=== PATIENT | male | born 1950 | race Two or more races ===

== ENCOUNTER 2017-06-11 11:55 | Inpatient (IN) | payer MEDICARE, OTHER ==
[~2017-06-11] VITALS: Ht 175.3 cm; Wt 77.1 kg
[2017-06-11] MEDS ORDERED: Morphine Sulfate 4mg/ml Inj IVP ONE (12:15)
[2017-06-11 13:38] LABS: BASOPHILS % (AUTO) 0.6 % (0.0-2.0); EOSINOPHILS % (AUTO) 0.1 % (0.0-3.0); LYMPHOCYTES % (AUTO) 22.7 % (20.0-45.0); MEAN CORPUSCULAR HEMOGLOBIN 30.1 PG (27.0-31.0); MEAN CORPUSCULAR HGB CONC 32.3 G/DL (32.0-36.0); MEAN CORPUSCULAR VOLUME 93 FL (80-99); MEAN PLATELET VOLUME 7.1 FL (6.5-10.1); MONOCYTES % (AUTO) 6.6 % (1.0-10.0); PLATELET COUNT 305 K/UL (150-450); RED BLOOD COUNT 4.15 M/UL (4.70-6.10); RED CELL DISTRIBUTION WIDTH 13.1 % (11.6-14.8); WHITE BLOOD COUNT 16.3 K/UL (4.8-10.8)
[2017-06-11 13:39] LABS: APPEARANCE,URINE SLIGHTLY CLOUDY; KETONES,URINE NEGATIVE (NEGATIVE); LEUKOCYTE ESTERASE ,URINE 3+ (NEGATIVE); NITRITE,URINE POSITIVE (NEGATIVE); PH,URINE 9 (4.5-8.0); PROTEIN,URINE 2+ (NEGATIVE); UROBILINOGEN,URINE NORMAL MG/DL (0.0-1.0)
[2017-06-11 14:03] LABS: BACTERIA,URINE MANY /HPF; SQUAMOUS EPITHELIAL CELL,UR OCCASIONAL /LPF (NONE/OCC); WBC,URINE 15-20 /HPF (0 - 0)
[2017-06-11] MEDS ORDERED: cefTRIAXone 1 GM in NS 55 ML IVPB ONE (14:15)
--- NOTE | 2017-06-11 14:27 | Emergency Room Report ---
History of Present Illness General Chief Complaint: Nausea, Vomiting, and Diarrhea Source: Patient, EMS Present Illness HPI 67-year-old male presents ED for evaluation. Per EMS patient had abdominal pain with vomiting starting today at the long term. Patient points lower abdomen. States pain is a 10 out of 10, sharp, nonradiating. Denies fevers or chills. Denies chest pain or shortness of breath. No other aggravating or relieving factors. Denies any other associated symptom Allergies: Coded Allergies: ASPIRIN (Verified Allergy, Unknown, 06/11/17) NAPROXEN (Verified Allergy, Unknown, 06/11/17) Patient History Past Medical History: DM, HTN, CVA/TIA Past Surgical History: none Pertinent Family History: none Social History: Denies: alcohol use, drug use, smoking Immunizations: UTD Reviewed Nursing Documentation: PMH: Agreed, PSxH: Agreed Nursing Documentation-PMH Past Medical History: No History, Except For Hx Hypertension: Yes Hx Diabetes: Yes Hx Cerebrovascular Accident: Yes Review of Systems All Other Systems: negative except mentioned in HPI Physical Exam Vital Signs Date Time Temp Pulse Resp B/P Pulse Ox O2 Delivery O2 Flow Rate FiO2 06/11/17 11:57 98.4 74 18 152/84 98 Room Air Sp02 EP Interpretation: reviewed, normal General Appearance: no apparent distress, alert, GCS 15, non-toxic Head: normocephalic, atraumatic Eyes: bilateral eye PERRL, bilateral eye normal inspection ENT: hearing grossly normal, normal pharynx, no angioedema, normal voice Neck: full range of motion, supple/symm/no masses Respiratory: chest non-tender, lungs clear, normal breath sounds, speaking full sentences Cardiovascular #1: regular rate, rhythm, no edema Cardiovascular #2: 2+ carotid (R), 2+ carotid (L), 2+ radial (R), 2+ radial (L) , 2+ dorsalis pedis (R), 2+ dorsalis pedis (L) Gastrointestinal: normal bowel sounds, soft, non-distended, no guarding, no rebound, tenderness - lower abdomen Rectal: deferred Genitourinary: normal inspection, no CVA tenderness Musculoskeletal: back normal, gait/station normal, normal range of motion, non- tender Neurologic: alert, oriented x3, responsive, motor strength/tone normal, sensory intact, speech normal Psychiatric: judgement/insight normal, memory normal, mood/affect normal, no suicidal/homicidal ideation Reflexes: 3+ bicep (R), 3+ bicep (L), 3+ tricep (R), 3+ tricep (L), 3+ knee (R) , 3+ knee (L) Skin: normal color, no rash, warm/dry, well hydrated Lymphatic: no adenopathy Medical Decision Making Diagnostic Impression: Primary Impression: UTI (urinary tract infection) Qualified Codes: N39.0 - Urinary tract infection, site not specified; R31.9 - Hematuria, unspecified Additional Impression: Vomiting Qualified Codes: R11.2 - Nausea with vomiting, unspecified ER Course Hospital Course 67-year-old male presents to ED with lower abdominal pain and vomiting. Differential diagnoses include: BPH, cystitis, pyelonephritis, kidney stone Clinical course Patient placed on stretcher. health information manager. After initial history and physical I ordered labs, IV fluids, UA, pain medication and CT scan Labs - no leukocytosis, Hb/Hct stable. chemistry hemolyzed. UA + bacteria CT deferred - CT is down. patient appears comfortable and I believe the pain is likely due to the UTI. I believe CT can be deferred for now abx given. Case discussed with Dr. Harris (covering for Dr Prasad) and he agreed to accept the patient to his service for further care and support I feel this is a highly complex case requiring extensive working including EKG/ Rhythm strip, Xray/CT/US, Blood/urine lab work, repeat exams while in ED, and administration of strong opiates/narcotics for pain control, admission to hospital or close patient follow up. Diagnosis - UTI, vomiting Patient admitted to floor in serious condition Labs Test 06/11/17 13:20 White Blood Count 16.3 K/UL (4.8-10.8) Red Blood Count 4.15 M/UL (4.70-6.10) Hemoglobin 12.5 G/DL (14.2-18.0) Hematocrit 38.7 % (42.0-52.0) Mean Corpuscular Volume 93 FL (80-99) Mean Corpuscular Hemoglobin 30.1 PG (27.0-31.0) Mean Corpuscular Hemoglobin Concent 32.3 G/DL (32.0-36.0) Red Cell Distribution Width 13.1 % (11.6-14.8) Platelet Count 305 K/UL (150-450) Mean Platelet Volume 7.1 FL (6.5-10.1) Neutrophils (%) (Auto) 70.0 % (45.0-75.0) Lymphocytes (%) (Auto) 22.7 % (20.0-45.0) Monocytes (%) (Auto) 6.6 % (1.0-10.0) Eosinophils (%) (Auto) 0.1 % (0.0-3.0) Basophils (%) (Auto) 0.6 % (0.0-2.0) Urine Color Pale yellow Urine Appearance Slightly cloudy Urine pH 9 (4.5-8.0) Urine Specific [place] 1.010 (1.005-1.035) Urine Protein 2+ (NEGATIVE) Urine Glucose (UA) Negative (NEGATIVE) Urine Ketones Negative (NEGATIVE) Urine Occult Blood 2+ (NEGATIVE) Urine Nitrite Positive (NEGATIVE) Urine Bilirubin Negative (NEGATIVE) Urine Urobilinogen Normal MG/DL (0.0-1.0) Urine Leukocyte Esterase 3+ (NEGATIVE) Urine RBC 5-10 /HPF (0 - 0) Urine WBC 15-20 /HPF (0 - 0) Urine Squamous Epithelial Cells Occasional /LPF Urine Bacteria Many /HPF (NONE) Lactic Acid Level 1.30 mmol/L (0.66-2.22) EKG Diagnostic Results Rate: normal Rhythm: NSR ST Segments: no acute changes ASA given to the pt in ED: No Rhythm Strip Diag. Results EP Interpretation: yes Rhythm: NSR, no PVC's, no ectopy CT/MRI/US Diagnostic Results CT/MRI/US Diagnostic Results : Imaging Test Ordered: CT DOWN Last Vital Signs Date Time Temp Pulse Resp B/P Pulse Ox O2 Delivery O2 Flow Rate FiO2 06/11/17 11:57 98.4 74 18 152/84 98 Room Air Status: improved Disposition: ADMITTED INPATIENT Condition: Serious Referrals: PANKAJ GEIGER (PCP) TAYLOR HERRERA M.D. Jun 11, 2017 14:27
[2017-06-11] MEDS ORDERED: Acetaminophen 650 MG SUPP RECTAL PRN ×3 (15:00→19:15)
[2017-06-11] MEDS ORDERED: PROSCAR5 MG ORAL (15:09)
[2017-06-11] MEDS ORDERED: HEPARIN SO5000 UNIT2 SUBQ (15:09)
[2017-06-11] MEDS ORDERED: PEPCID20 MG ORAL (15:09)
[2017-06-11] MEDS ORDERED: JANUVIA25 MG ORAL (15:09)
[2017-06-11] MEDS ORDERED: ATORVASTATIN CA10 MG ORAL (15:09)
[2017-06-11] MEDS ORDERED: FLEET ENEMA133 ML RECTAL (15:09)
[2017-06-11] MEDS ORDERED: COLACE100 MG ORAL (15:09)
[2017-06-11] MEDS ORDERED: BENAZEPRIL HCL10 MG ORAL (15:09)
[2017-06-11] MEDS ORDERED: CARVEDILOL3.125 MG ORAL (15:09)
[2017-06-11] MEDS ORDERED: BISACODYL5 MG ORAL (15:09)
[2017-06-11] MEDS ORDERED: METFORMIN HCL500 M1 ORAL (15:09)
[2017-06-11] MEDS ORDERED: MILK OF MA400 MG/51 ORAL (15:09)
[2017-06-11] MEDS ORDERED: ACETAMINOPHEN325 M1 ORAL (15:14)
[2017-06-11] MEDS ORDERED: PLAVIX75 MG ORAL (15:14)
[2017-06-11] MEDS ORDERED: ZOFRAN4 M3 ORAL (15:14)
[2017-06-11] MEDS ORDERED: VITAMIN C500 M1 ORAL (15:14)
[2017-06-11] MEDS ORDERED: senna PO (15:14)
[2017-06-11] MEDS ORDERED: CARAFATE1 G1 ORAL (15:14)
[2017-06-11 16:21] VITALS: BP 129/65
[2017-06-11 16:48] LABS: TROPONIN I < 0.30 ng/mL (<=0.30)
[2017-06-11 16:51] LABS: ALANINE AMINOTRANSFERASE 9 U/L (3-41); ALBUMIN/GLOBULIN RATIO 0.9 (1.0-2.7); ANION GAP 12 (5-15); ASPARTATE AMINO TRANSFERASE 8 U/L (5-40); CARBON DIOXIDE 25 mEQ/L (20-30); CHLORIDE 102 mEQ/L (98-107); CREATININE 1.1 mg/dL (0.7-1.2); GLOMERULAR FILTRATION RATE > 60 mL/min (>60); HEMOLYSIS 90; LIPASE 64 U/L (< 60); POTASSIUM 4.6 mEQ/L (3.4-4.9); SODIUM 139 mEQ/L (135-145); TOTAL PROTEIN 6.8 g/dL (6.6-8.7)
[2017-06-11] MEDS ORDERED: D5 1/2NS 1,000 ML IV SCH (18:00)
[2017-06-11 18:30] VITALS: BP 143/87
[2017-06-11] MEDS ORDERED: Milk of Magnesia 30ml Ud ORAL PRN (19:15)
[2017-06-11] MEDS ORDERED: Fleet's Enema 133ml RECTAL PRN (19:15)
[2017-06-11 20:00] VITALS: BP 131/69
[2017-06-11] MEDS ORDERED: Fleet's Enema 133ml RECTAL ONE (21:00)
[2017-06-11] MEDS ORDERED: Heparin 5000 units/ml inj SUBQ SCH ×2 (21:00)
[2017-06-11] MEDS: 1/2NS w/KCl 20mEq 1000ml 1,000 ML IV SCH (21:25)
[2017-06-11] MEDS: Lactulose 20gm/30ml UDC ORAL SCH ×2 (21:25→22:57)
[2017-06-11] MEDS: Pantoprazole Inj IVP SCH (21:27)
[2017-06-11] MEDS: Heparin 5000 units/ml inj SUBQ SCH (21:28)
[2017-06-11] MEDS: NovoLOG Insulin Flexpen SUBQ SCH (21:29)
[2017-06-11] MEDS: Morphine Sulfate 4mg/ml Inj IVP PRN (22:58)
--- NOTE | 2017-06-11 23:45 | History and Physical Report ---
DATE OF ADMISSION: 06/11/2017 CHIEF COMPLAINT AND REASON FOR HOSPITALIZATION: The patient admitted with nausea and projectile vomiting. HISTORY OF PRESENT ILLNESS: The patient is a poor historian. He is a resident of an [facility]. He has had apparently projectile vomiting several times today. The patient has had gastroesophageal reflux. 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 He has a suprapubic catheter apparently for obstructive uropathy. The patient was hospitalized in February 2017 and old records are reviewed. At that time, he apparently had an episode of sepsis, acute renal failure, urosepsis shock from the above and recovered. There is a history of diabetes, diabetic neuropathy, organic brain syndrome, diastolic heart failure of chronic kidney disease stage 3, and benign prostatic hypertrophy. MEDICATIONS: Prior to admission, medications are reviewed on the computer. HABITS: He is a former smoker and moderate alcohol drinker, but quit socially and lives in an [facility]. SYSTEM REVIEW: HEAD, EYES, EARS, NOSE, AND THROAT: He states vision and hearing is good. ENDOCRINE: Diabetes as above. No known thyroid disease. PULMONARY: No asthma or TB. CARDIAC: Record showed diastolic heart failure. No complaints of chest pain or palpitations. GASTROINTESTINAL: See above. GENITOURINARY: He has a suprapubic catheter. NEUROLOGIC: He is nonambulatory and still has residual weakness both legs. PHYSICAL EXAMINATION: GENERAL: The patient is alert man, lying in bed, in no acute distress. VITAL SIGNS: Temperature 94, pulse 59, respirations 18, and blood pressure 129/65. HEAD EYES, EARS, NOSE, AND THROAT: Sclerae are nonicteric. Ocular motions are intact in all directions. Oral mucosa moist. NECK: No adenopathy or thyroid enlargement. LUNGS: Clear. HEART: Rhythm is regular. I hear no murmur. ABDOMEN: Mildly distended and tympanitic. There is a suprapubic catheter. No focal tenderness. RECTAL: There is reduced sphincter stone. I do not feel an enlarged prostate. There is light brown stool on the glove, only a scant amount. No reachable fecal impaction. EXTREMITIES: No edema, cyanosis or clubbing. NEUROLOGIC: He is alert and responsive. Cranial nerves are intact. He moves all extremities, but has weakness in both legs about 3+/5. LABORATORY DATA: Reviewed on the computer. IMPRESSION: 1. Abdominal pain, nausea, and vomiting. This could be due to gastritis, partial fecal impaction, early pancreatitis, possible other etiologies are numerous. 2. Diabetes. 3. History of Guillain-Browning syndrome. 4. History of suprapubic catheter. 5. Pyuria possibly urinary tract infection. 6. Cognitive impairment. PLAN: The patient's culture he received ceftriaxone already. He will be given a clear liquid diet and laxative regimen. We will get his abdominal imaging tomorrow and make further assessment and treatment. Pending a course of treatment. Also given PPI for gastritis. Viktor Harris M.D. DR: YOHANNES JOB#: [id number] CC:
[2017-06-12] VITALS: BP 131/68
[2017-06-12] MEDS: Lactulose 20gm/30ml UDC ORAL SCH (00:48)
--- NOTE | 2017-06-12 03:21 | Wound Care Consultation ---
Wound Assessment Wound Assessment #1: Wound Number: #1 Wound Present on Admission: Yes New Wound: No Status Change of Wound: No Wound Location Body Site Modif: mid Wound Location Body Site: sacral Wound Type: scar Shilo Test: Does not Shilo Wound Thickness: Full Thickness - scar tissue Wound Length: 3.0 Wound Width: 4.5 Wound Depth: utd Percent of Wound [place]/Red: 100 Wound Drainage Amount: None Wound Drainage Odor: None/Absent Tissue Surrounding Wound: Intact Wound General Appearance: Asymptomatic, Reddened Wound Assessment #2: Wound Number: #2 Wound Present on Admission: Yes New Wound: No Status Change of Wound: No Wound Location Body Site Modif: right Wound Location Body Site: ischial tuberosity Wound Type: scar Shilo Test: Does not Shilo Wound Thickness: Full Thickness - full thickness scar tissue Wound Length: 2.5 Wound Width: 3.5 Percent of Wound [place]/Red: 100 Wound Drainage Amount: None Wound Drainage Odor: None/Absent Tissue Surrounding Wound: Intact Wound General Appearance: Asymptomatic, Reddened Wound Assessment #3: Wound Number: #3 Wound Present on Admission: Yes New Wound: No Status Change of Wound: No Wound Location Body Site Modif: right Wound Location Body Site: ischial tuberosity Wound Type: scar Shilo Test: Does not Shilo Wound Thickness: Full Thickness - scar tissue Wound Length: 2.5 Wound Width: 3.5 Percent of Wound [place]/Red: 100 Wound Drainage Amount: None Wound Drainage Odor: None/Absent Tissue Surrounding Wound: Intact Wound General Appearance: Asymptomatic, Reddened Wound Comment #1 Sacral full thickness scar tissue #2 Left ischial tuberosity full thickness scar tissue #3 Right ischial tuberosity full thickness scar tissue Recommendation -Keep clean and dry -Turn and reposition -Optimize nutrition -Low air loss SPR mattress -Offload both heels -Heel protector on both heels -Assess and f/u accordingly for any changes TIN WHITE RN Jun 12, 2017 03:21
[2017-06-12 04:00] VITALS: BP 124/84
[2017-06-12] MEDS: NovoLOG Insulin Flexpen SUBQ SCH ×4 (06:35→21:00)
[2017-06-12 08:14] VITALS: BP 123/70
[2017-06-12] MEDS: sitaGLIPtin 25mg tab ORAL SCH (09:00)
[2017-06-12 09:10] LABS: BASOPHILS % (AUTO) 1.1 % (0.0-2.0); EOSINOPHILS % (AUTO) 2.3 % (0.0-3.0); LYMPHOCYTES % (AUTO) 42.9 % (20.0-45.0); MEAN CORPUSCULAR HEMOGLOBIN 30.3 PG (27.0-31.0); MEAN CORPUSCULAR HGB CONC 31.8 G/DL (32.0-36.0); MEAN CORPUSCULAR VOLUME 95 FL (80-99); MEAN PLATELET VOLUME 6.8 FL (6.5-10.1); MONOCYTES % (AUTO) 6.8 % (1.0-10.0); NEUTROPHILS % (AUTO) 46.9 % (45.0-75.0); PLATELET COUNT 291 K/UL (150-450); RED BLOOD COUNT 3.83 M/UL (4.70-6.10); RED CELL DISTRIBUTION WIDTH 13.3 % (11.6-14.8); WHITE BLOOD COUNT 12.6 K/UL (4.8-10.8)
[2017-06-12] MEDS: Sucralfate 1gm tab ORAL SCH ×2 (09:28→17:47)
[2017-06-12] MEDS: Benazepril 10mg tab ORAL SCH (09:28)
[2017-06-12] MEDS: Ascorbic Acid 500mg tab ORAL SCH (09:28)
[2017-06-12 09:29] LABS: ALANINE AMINOTRANSFERASE 9 U/L (3-41); ANION GAP 12 (5-15); ASPARTATE AMINO TRANSFERASE 6 U/L (5-40); CALCIUM 8.5 mg/dL (8.6-10.2); CARBON DIOXIDE 28 mEQ/L (20-30); CHLORIDE 103 mEQ/L (98-107); CREATININE 1.2 mg/dL (0.7-1.2); GLOMERULAR FILTRATION RATE > 60 mL/min (>60); HEMOLYSIS 4; POTASSIUM 4.5 mEQ/L (3.4-4.9); SODIUM 143 mEQ/L (135-145); TOTAL PROTEIN 7.4 g/dL (6.6-8.7)
[2017-06-12] MEDS: Docusate 100mg cap ORAL SCH (09:29)
[2017-06-12] MEDS: Pantoprazole Inj IVP SCH ×2 (09:29→21:06)
[2017-06-12] MEDS: Bisacodyl EC 5mg tab ORAL SCH (09:29)
--- NOTE | 2017-06-12 09:31 | Diagnostic Imaging Report ---
Indication: ABD PAIN Technique: XRAY ABDOMEN 1VIEW/KUB Comparison: None. Findings: There is noted throughout the large and small bowel. There is minimal dilatation. No air is noted in the rectum. Degenerative changes are present in the spine. The stomach is also distended with air. Impression: Gaseous distention of the stomach and large and small bowel. This likely represents ileus. Obstruction is less likely. Followup suggested. Degenerative change of the spine.
[2017-06-12] MEDS: Heparin 5000 units/ml inj SUBQ SCH ×2 (09:32→21:08)
[2017-06-12] MEDS: 1/2NS w/KCl 20mEq 1000ml 1,000 ML IV SCH ×2 (09:34→22:58)
[2017-06-12 11:43] VITALS: BP 125/66
[2017-06-12] MEDS ORDERED: Vancomycin 1.5 GM/D5W 250ML IVPB ONE (12:00)
--- NOTE | 2017-06-12 12:26 | General Progress Note ---
Assessment/Plan Problem List: (1) Gastritis ICD Codes: K29.70 - Gastritis, unspecified, without bleeding SNOMED: 5775014 (2) Paraplegia ICD Codes: G82.20 - Paraplegia, unspecified SNOMED: 70756677 (3) Ileus ICD Codes: K56.7 - Ileus, unspecified SNOMED: 998531426 (4) Sepsis ICD Codes: A41.9 - Sepsis, unspecified organism SNOMED: 60867203 (5) UTI (urinary tract infection) ICD Codes: N39.0 - Urinary tract infection, site not specified SNOMED: 54005211 Qualifiers: Qualified Codes: N39.0 - Urinary tract infection, site not specified; R31.9 - Hematuria, unspecified (6) Vomiting ICD Codes: R11.10 - Vomiting, unspecified SNOMED: 622326044 Qualifiers: Qualified Codes: R11.2 - Nausea with vomiting, unspecified Assessment/Plan G+ cocci in BC, rx vanco, zosyn for uti G-, advance diet Subjective ROS Limited/Unobtainable: Yes Allergies: Coded Allergies: ASPIRIN (Verified Allergy, Unknown, 06/11/17) NAPROXEN (Verified Allergy, Unknown, 06/11/17) Objective Last 24 Hour Vital Signs Date Time Temp Pulse Resp B/P Pulse Ox O2 Delivery O2 Flow Rate FiO2 06/12/17 11:43 98.4 65 20 125/66 98 Room Air 06/12/17 09:29 68 123/70 06/12/17 09:28 123/70 06/12/17 08:14 98.0 68 20 123/70 98 Room Air 06/12/17 04:00 97.2 88 18 124/84 95 Room Air 06/12/17 00:00 97.9 66 20 131/68 91 Room Air 06/11/17 21:00 69 131/69 06/11/17 20:00 98.1 69 20 131/69 91 Room Air 06/11/17 18:30 97.5 69 18 143/87 97 Room Air 06/11/17 17:45 98.4 59 18 129/65 98 Room Air 06/11/17 16:21 98.4 59 18 129/65 98 Room Air 06/11/17 15:04 98.4 Intake and Output 06/11/17 06/12/17 19:00 07:00 Intake Total 1050 ml 675 ml Output Total 700 ml Balance 1050 ml -25 ml IV Total 675 ml Other 1050 ml Output Urine Total 700 ml Laboratory Tests 06/11/17 13:20: White Blood Count 16.3H, Red Blood Count 4.15L, Hemoglobin 12.5L, Hematocrit 38.7L, Mean Corpuscular Volume 93, Mean Corpuscular Hemoglobin 30.1, Mean Corpuscular Hemoglobin Concent 32.3, Red Cell Distribution Width 13.1, Platelet Count 305, Mean Platelet Volume 7.1, Neutrophils (%) (Auto) 70.0, Lymphocytes (% ) (Auto) 22.7, Monocytes (%) (Auto) 6.6, Eosinophils (%) (Auto) 0.1, Basophils ( %) (Auto) 0.6, Urine Color Pale yellow, Urine Appearance Slightly cloudy, Urine pH 9, Urine Specific [place] 1.010, Urine Protein 2+H, Urine Glucose (UA) Negative, Urine Ketones Negative, Urine Occult Blood 2+H, Urine Nitrite PositiveH, Urine Bilirubin Negative, Urine Urobilinogen Normal, Urine Leukocyte Esterase 3+H, Urine RBC 5-10H, Urine WBC 15-20H, Urine Squamous Epithelial Cells Occasional, Urine Bacteria ManyH, Lactic Acid Level 1.30 06/11/17 16:00: Sodium Level 139, Potassium Level 4.6, Chloride Level 102, Carbon Dioxide Level 25, Anion Gap 12, Blood Urea Nitrogen 47H, Creatinine 1.1, Estimat Glomerular Filtration Rate > 60, Glucose Level 135H, Calcium Level 8.0L, Total Bilirubin 0.3, Aspartate Amino Transf (AST/SGOT) 8, Alanine Aminotransferase (ALT/SGPT) 9 , Alkaline Phosphatase 80, Troponin I < 0.30, Total Protein 6.8, Albumin 3.3L, Globulin 3.5, Albumin/Globulin Ratio 0.9L, Lipase 64H 06/12/17 08:25: White Blood Count 12.6H, Red Blood Count 3.83L, Hemoglobin 11.6L, Hematocrit 36.5L, Mean Corpuscular Volume 95, Mean Corpuscular Hemoglobin 30.3, Mean Corpuscular Hemoglobin Concent 31.8L, Red Cell Distribution Width 13.3, Platelet Count 291, Mean Platelet Volume 6.8, Neutrophils (%) (Auto) 46.9, Lymphocytes (%) (Auto) 42.9, Monocytes (%) (Auto) 6.8, Eosinophils (%) (Auto) 2.3, Basophils (%) (Auto) 1.1, Sodium Level 143, Potassium Level 4.5, Chloride Level 103, Carbon Dioxide Level 28, Anion Gap 12, Blood Urea Nitrogen 42H, Creatinine 1.2, Estimat Glomerular Filtration Rate > 60, Glucose Level 120H, Calcium Level 8.5L, Total Bilirubin 0.2, Aspartate Amino Transf (AST/SGOT) 6, Alanine Aminotransferase (ALT/SGPT) 9, Alkaline Phosphatase 94, Total Protein 7.4, Albumin 3.8, Globulin 3.6, Albumin/Globulin Ratio 1.0 Height (Feet): 5 Height (Inches): 9.00 Weight (Pounds): 170 General Appearance: no apparent distress, alert EENT: normal ENT inspection Neck: non-tender, normal alignment Cardiovascular: normal rate, regular rhythm Respiratory/Chest: lungs clear Abdomen: soft, distended, other - bs present Extremities: non-tender Neurologic: other - bilat lweg weakness ANDREW EPPS Jun 12, 2017 12:26
[2017-06-12] MEDS: Vancomycin 1250mg/D5W 250ml IVPB SCH (12:33)
[2017-06-12] MEDS: DiphenhydrAMINE 50mg/ml Inj IVP PRN (14:58)
[2017-06-12 16:08] VITALS: BP 124/62
[2017-06-12] MEDS: Piperacillin/Tazobactam 3.375 GM in D5W 110 ML IVPB SCH ×2 (17:46→21:09)
[2017-06-12 20:00] VITALS: BP 102/60
[2017-06-13] VITALS: BP 113/57
[2017-06-13] MEDS: Morphine Sulfate 4mg/ml Inj IVP PRN (01:02)
[2017-06-13 04:00] VITALS: BP 116/65
[2017-06-13] MEDS: Piperacillin/Tazobactam 3.375 GM in D5W 110 ML IVPB SCH ×3 (05:41→21:16)
[2017-06-13] MEDS: NovoLOG Insulin Flexpen SUBQ SCH ×4 (05:41→21:00)
[2017-06-13 08:00] VITALS: BP 127/74
[2017-06-13] MEDS: Ascorbic Acid 500mg tab ORAL SCH (09:00)
[2017-06-13] MEDS: sitaGLIPtin 25mg tab ORAL SCH (09:00)
[2017-06-13] MEDS: Benazepril 10mg tab ORAL SCH (09:00)
[2017-06-13] MEDS: Sucralfate 1gm tab ORAL SCH ×2 (09:00→17:35)
[2017-06-13] MEDS: Bisacodyl EC 5mg tab ORAL SCH (09:00)
[2017-06-13] MEDS: Docusate 100mg cap ORAL SCH (09:00)
[2017-06-13] MEDS ORDERED: NS 275ml ONE (10:02)
[2017-06-13] MEDS ORDERED: Tubing IV Secondary IV ONE (10:02)
[2017-06-13] MEDS: Pantoprazole Inj IVP SCH ×2 (11:10→21:14)
[2017-06-13] MEDS: Heparin 5000 units/ml inj SUBQ SCH ×2 (11:13→21:16)
[2017-06-13] MEDS: 1/2NS w/KCl 20mEq 1000ml 1,000 ML IV SCH (11:52)
[2017-06-13 12:00] VITALS: BP 121/73
[2017-06-13] MEDS: Vancomycin 1250mg/D5W 250ml IVPB SCH (12:00)
--- NOTE | 2017-06-13 12:23 | General Progress Note ---
Assessment/Plan Problem List: (1) Gastritis ICD Codes: K29.70 - Gastritis, unspecified, without bleeding SNOMED: 1082434 (2) Paraplegia ICD Codes: G82.20 - Paraplegia, unspecified SNOMED: 75244520 (3) Ileus ICD Codes: K56.7 - Ileus, unspecified SNOMED: 584139162 (4) Sepsis ICD Codes: A41.9 - Sepsis, unspecified organism SNOMED: 72617098 (5) UTI (urinary tract infection) ICD Codes: N39.0 - Urinary tract infection, site not specified SNOMED: 09922501 Qualifiers: Qualified Codes: N39.0 - Urinary tract infection, site not specified; R31.9 - Hematuria, unspecified (6) Vomiting ICD Codes: R11.10 - Vomiting, unspecified SNOMED: 837186766 Qualifiers: Qualified Codes: R11.2 - Nausea with vomiting, unspecified Assessment/Plan G+ cocci in BC, coag neg contaminant, dc vanco, zosyn for uti G-, advance diet Subjective Constitutional: Reports: weakness HEENT: Reports: no symptoms Cardiovascular: Reports: no symptoms Respiratory: Reports: no symptoms Gastrointestinal/Abdominal: Reports: no symptoms Genitourinary: Reports: incontinence Neurologic/Psychiatric: Reports: pre-existing deficit Endocrine: Reports: no symptoms Hematologic/Lymphatic: Reports: no symptoms Allergies: Coded Allergies: ASPIRIN (Verified Allergy, Unknown, 06/11/17) NAPROXEN (Verified Allergy, Unknown, 06/11/17) Objective Last 24 Hour Vital Signs Date Time Temp Pulse Resp B/P Pulse Ox O2 Delivery O2 Flow Rate FiO2 06/13/17 09:00 62 127/74 06/13/17 09:00 127/74 06/13/17 08:00 96.8 62 20 127/74 99 Room Air 06/13/17 04:00 97.6 63 17 116/65 99 Room Air 06/13/17 00:00 97.9 64 17 113/57 98 Room Air 06/12/17 21:00 61 102/60 06/12/17 20:00 98.1 61 16 102/60 96 Nasal Cannula 06/12/17 16:08 97.5 65 18 124/62 100 Room Air Intake and Output 06/12/17 06/13/17 19:00 07:00 Intake Total 1617.5 ml 765.0 ml Output Total 800 ml 450 ml Balance 817.5 ml 315.0 ml Intake Oral 840 ml IV Total 777.5 ml 765.0 ml Output Urine Total 800 ml 450 ml # Bowel Movements 4 2 Height (Feet): 5 Height (Inches): 9.00 Weight (Pounds): 170 General Appearance: no apparent distress, alert EENT: normal ENT inspection Neck: non-tender, normal alignment Cardiovascular: regular rhythm Respiratory/Chest: lungs clear Abdomen: soft, distended Edema: no edema noted Arm (L), no edema noted Arm (R), no edema noted Leg (L), no edema noted Leg (R), no edema noted Pedal (L), no edema noted Pedal (R), no edema noted Generalized Neurologic: motor weakness ANDREW EPPS Jun 13, 2017 12:23
--- NOTE | 2017-06-13 15:05 | Cardiology Report ---
APPROVED REPORT EXAM: Two-dimensional and M-mode echocardiogram with Doppler and color Doppler. INDICATION Positive blood culture M-Mode DIMENSIONS IVSd1.6 (0.7-1.1cm)Left Atrium (MM)4.4 (1.6-4.0cm) LVDd4.2 (3.5-5.6cm)Aortic Root3.1 (2.0-3.7cm) PWd1.4 (0.7-1.1cm)Aortic Cusp Exc.1.8 (1.5-2.0cm) LVDs1.6 (2.5-4.0cm) PWs2.2 cm Technically difficult study due to poor acoustic windows. Study quality precludes accurate assessment of regional wall motion. Normal left ventricular chamber size, systolic function and wall motion to extent visualized. Left ventricular ejection fraction estimated to be 60 %. Mild left ventricular hypertrophy. Anterior Echo-free space, may be due to pericardial fat or effusion. All other cardiac chamber sizes are within normal limits. Mild focal aortic valve sclerosis with adequate cusp excursion. Mildly thickened mitral valve leaflets with normal excursion. Mild mitral annulus and aortic root calcification. Pulmonic valve not well visualized. Normal tricuspid valve structure. IVC dilated at 1.8 cm with physiologic collapse. A color flow and spectral Doppler study was performed and revealed: No aortic regurgitation. No mitral regurgitation. Mitral diastolic velocities suggest reduced left ventricular relaxation (Grade I). Trace tricuspid regurgitation. Tricuspid systolic velocities suggests peak right ventricular systolic pressure of 15 mmHg. No pulmonic regurgitation present.
[2017-06-13 16:02] VITALS: BP 111/60
[2017-06-13 20:00] VITALS: BP 154/69
[2017-06-14] VITALS: BP 157/70
[2017-06-14] MEDS: 1/2NS w/KCl 20mEq 1000ml 1,000 ML IV SCH ×2 (01:57→14:50)
[2017-06-14 04:00] VITALS: BP 130/72
[2017-06-14] MEDS: NovoLOG Insulin Flexpen SUBQ SCH ×3 (05:51→17:33)
[2017-06-14] MEDS: Piperacillin/Tazobactam 3.375 GM in D5W 110 ML IVPB SCH ×2 (05:51→14:50)
[2017-06-14 07:16] LABS: ALANINE AMINOTRANSFERASE 10 U/L (3-41); ASPARTATE AMINO TRANSFERASE 7 U/L (5-40); CALCIUM 8.5 mg/dL (8.6-10.2); CARBON DIOXIDE 25 mEQ/L (20-30); CREATININE 0.9 mg/dL (0.7-1.2); GLOMERULAR FILTRATION RATE > 60 mL/min (>60); HEMOLYSIS 2; TOTAL PROTEIN 6.6 g/dL (6.6-8.7)
[2017-06-14 07:34] LABS: BASOPHILS % (AUTO) 1.3 % (0.0-2.0); EOSINOPHILS % (AUTO) 6.5 % (0.0-3.0); LYMPHOCYTES % (AUTO) 45.5 % (20.0-45.0); MEAN CORPUSCULAR HEMOGLOBIN 32.3 PG (27.0-31.0); MEAN CORPUSCULAR HGB CONC 34.4 G/DL (32.0-36.0); MEAN CORPUSCULAR VOLUME 94 FL (80-99); MONOCYTES % (AUTO) 7.9 % (1.0-10.0); NEUTROPHILS % (AUTO) 38.8 % (45.0-75.0); PLATELET COUNT 234 K/UL (150-450); RED BLOOD COUNT 3.29 M/UL (4.70-6.10); RED CELL DISTRIBUTION WIDTH 12.9 % (11.6-14.8); WHITE BLOOD COUNT 9.7 K/UL (4.8-10.8)
[2017-06-14 08:15] VITALS: BP 129/72
[2017-06-14] MEDS: Sucralfate 1gm tab ORAL SCH ×2 (08:47→17:32)
[2017-06-14] MEDS: Pantoprazole Inj IVP SCH (08:47)
[2017-06-14] MEDS: Ascorbic Acid 500mg tab ORAL SCH (08:48)
[2017-06-14] MEDS: sitaGLIPtin 25mg tab ORAL SCH (08:48)
[2017-06-14] MEDS: Benazepril 10mg tab ORAL SCH (08:49)
[2017-06-14] MEDS: Docusate 100mg cap ORAL SCH (08:49)
[2017-06-14] MEDS: Bisacodyl EC 5mg tab ORAL SCH (08:49)
[2017-06-14] MEDS: Heparin 5000 units/ml inj SUBQ SCH (08:50)
[2017-06-14] MEDS: DiphenhydrAMINE 50mg/ml Inj IVP PRN (08:59)
[2017-06-14 09:10] LABS: ANION GAP 12 (5-15); CHLORIDE 101 mEQ/L (98-107); POTASSIUM 4.5 mEQ/L (3.4-4.9); SODIUM 138 mEQ/L (135-145)
--- NOTE | 2017-06-14 11:12 | Diagnostic Imaging Report ---
Indication:Abdominal pain Technique: Grayscale and duplex Doppler imaging of the abdomen performed. Comparison: None Findings: The study is limited because of immobility of the patient. The liver is somewhat prominent measuring about 18-19 cm. The main portal vein is patent by Doppler. The gallbladder is grossly unremarkable except for differential distention. There is no biliary ductal dilatation. There is small right pleural effusion present. There is no ascites. CBD measurement is 5 mm. The pancreas and aorta are poorly seen but unremarkable as such. Spleen is normal in size. No hydronephrosis demonstrated on this exam but the kidneys are poorly seen. Impression: Limited evaluation. No obvious gallstones, gallbladder wall thickening or pericholecystic fluid. Sonographic Brito's is unreliable. Were were informed the patient is paralyzed to some extent. This has implications for pain related to the gallbladder. Sonographic Brito's is unreliable in this case. Please correlate clinically.
[2017-06-14 12:15] VITALS: BP 149/75
[2017-06-14 16:09] VITALS: BP 131/69
--- NOTE | 2017-06-15 08:15 | Discharge Summary ---
DATE OF ADMISSION: 06/11/2017 DATE OF DISCHARGE: 06/14/2017 PERTINENT HISTORY: The patient is a resident of [facility] and have apparently projectile vomiting. There is a history of gastroesophageal reflux and prior Guillain-Brice. He has a suprapubic catheter for obstructive uropathy. PERTINENT PHYSICAL FINDINGS: GENERAL: The patient is alert. HEENT: Unremarkable. NECK: No adenopathy. LUNGS: Clear. HEART: Regular rhythm. ABDOMEN: Shows mild distention and tympanitic. There is a suprapubic catheter. No focal tenderness. RECTAL: Shows reduced sphincter tone. Light brown stool on the glove. EXTREMITIES: No edema. NEUROLOGIC: He is alert and responsive. He has weakness in both legs about 3+/5. COURSE IN THE HOSPITAL: The patient presented with projectile vomiting, nausea, and vomiting. He was treated empirically for gastritis. He was also given a laxative regimen and had clinical impression of fecal impaction contributing to his condition. Ultrasound of the abdomen did not show any major problem. He continued to have urine through his suprapubic catheter. The urine was colonized with ESBL and he also was colonized with VRE. Blood cultures were gram-positive cocci, but the final results were coag-negative Staph, which were considered to be a contaminant. He did receive a course of empiric antibiotics. The patient's condition stabilized. He is able to tolerate the diet. He had good bowel movements and was discharged to the [facility] in improved condition. FINAL DIAGNOSES: 1. Nausea and vomiting. 2. Fecal impaction. 3. History of suprapubic catheter. 4. 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 5. History of obstructive uropathy with suprapubic catheter. 6. Gastritis. 7. History of Guillain-Brice syndrome with paraplegia. DISCHARGE DISPOSITION: Back to the [facility] on the diet as tolerated. DISCHARGE MEDICATIONS: Per the discharge medication list. FOLLOWUP: Follow up by Dr. Yepez. Viktor Harris M.D. DR: Deepti JOB#: [id number] CC:
--- NOTE | 2017-06-15 09:05 | Diagnostic Imaging Report ---
Indication: Abdominal pain Technique: Continuous helical transaxial imaging of the abdomen and pelvis was obtained from the lung bases to the pubic symphysis during intravenous contrast administration. Coronal 2-D reformats were also obtained. Study obtained in a Siemens sensation [address] Total Dose length Product (DLP): [address] Dose Index Volume (CTDIvol): 20 mGy Comparison: None Findings: There is a small right pleural effusion. The heart is enlarged. Coronary and aortic calcifications demonstrated. The gallbladder is distended. No obvious gallstones are present. There is mild bilateral hydronephrosis present. Findings may be chronic as there is moderate thickening of the urinary bladder wall and suprapubic catheter indicating issue with bladder outlet. Diverticula noted within the colon. There is narrowing of intervertebral discs and accompanying endplate osteophyte formation. Hypertrophied facet joints also demonstrated.. Bones are osteopenic. No free fluid or free air identified. Impression: Distended gallbladder, nonspecific. Please correlate for cholecystitis. Mild bilateral hydronephrosis likely chronic associated with abnormal urinary bladder and suprapubic catheter. Please correlate clinically. Atherosclerotic disease Diverticulosis of the colon Spondylosis and osteopenia. Small right pleural effusion The CT scanner at [facility] is accredited by the [employer] and the scans are performed using dose optimization techniques as appropriate to a performed exam including Automatic Exposure control.
== END 2017-06-14 17:53 | DRG 392 ==
LOC: EDBD 11:55 → EMR 12:50 → 4E 13:02 → EDBEDREQ 15:10 → 4E 06-14 10:03
DX: R11.12 Projectile vomiting (principal); G82.20 Paraplegia, unspecified; E11.40 Type 2 diabetes mellitus with diabetic neuropathy, unspecified; N39.0 Urinary tract infection, site not specified; R11.2 Nausea with vomiting, unspecified; R31.9 Hematuria, unspecified; K21.9 Gastro-esophageal reflux disease without esophagitis; Z87.891 Personal history of nicotine dependence; K56.41 Fecal impaction; Z22.39 Carrier of other specified bacterial diseases; K29.70 Gastritis, unspecified, without bleeding; Z88.6 Allergy status to analgesic agent
CPT/HCPCS: 36415; 74000; 74177; 76700; 80053; 81003; 82962; 83605; 83690; 84484; 85025; 87040; 87081; 87086; 87181; 93306; J1815; J2405